=== PATIENT | female | born 1980 ===

== ENCOUNTER 2024-10-26 12:31 | Emergency (ER) | payer MEDICAID, OTHER, SELFPAY ==
[2024-10-26 12:41] VITALS: BP 119/76; PULSE 65; RESP 16; TEMP 36.8; O2SAT 95; BMI 28.5
--- NOTE | 2024-10-26 12:41 | ED.GENADULT ---
HPI - General Adult General Chief complaint: Extremity Injury, Upper Stated complaint: possible cyst Related Data Allergies Allergy/AdvReac Type Severity Reaction Status Date / Time No Known Allergies Allergy Verified 10/26/24 12:46 [facility] Social History Social History Advance Directives: No Advance Directives Information Provided: No Do you have a plan to hurt others: No Plan Physical Exam ED Vital Signs: BMI result Body Mass Index 28.5 Course Course Course Narrative: This is a rapid medical exam performed by Apryl Morales NP: Additional HPI, ROS, PE not included below will be deferred to primary provider. Patient is a 44-year-old [place] speaking female presenting with complaint of abscess to left axilla x 1 week. Area painful, rates at 9/10. No lymphangitis. Afebrile. Discharge Plan Discharge Clinical Impression: Axillary abscess Patient Disposition: Left W/O Completing Treatment Discharge Date/Time: 10/26/24 15:16
--- NOTE | 2024-10-26 15:07 | PC.NURSE ---
Informed by registration patient took off her ID bracelet, left it on the desk, and walked out of the dept.
== END 2024-10-26 15:16 | disposition left against medical advice (07) ==
PROVIDERS: Emergency Provider Emergency Medicine
DX: L02.412 Cutaneous abscess of left axilla (principal)
CPT/HCPCS: 99281